=== PATIENT | female | born 1990 | race American Indian/Alaskan Native ===

== ENCOUNTER → 2020-05-25 09:31 | Outpatient (REF) | payer OTHER, SELFPAY | LOC: ANHLAB 09:31 | PROVIDERS: Visit Provider Nurse Practitioner | DX: D22.39 Melanocytic nevi of other parts of face (principal) | CPT/HCPCS: 88305 ==

== ENCOUNTER 2022-02-15 18:20 | Emergency (ER) | payer OTHER, SELFPAY ==
--- NOTE | ~2022-02-15 | XR_ITS ---
EXAMINATION: XR chest 2V Exam Date/Time: 02/15/2022 19:05 CDT HISTORY: LEFT SIDED CP X 4 DAYS HX ANXIETY Comparison: None available. RESULT: Lines, tubes, and devices: None. Lungs and pleura: Clear. Cardiomediastinal silhouette: Normal. Other: No acute osseous or upper abdominal finding. IMPRESSION: No acute cardiopulmonary process. Reviewed, dictated and finalized at location K.
[2022-02-15 18:22] VITALS: BP 135/70; PULSE 106; RESP 20; TEMP 37.1; O2SAT 99
--- NOTE | 2022-02-15 18:25 | ECG_ITS ---
Measurements Intervals [place] Rate: 101 P: 65 VT: 146 QRS: 19 QRSD: 78 T: -11 QT: 339 QTc: 441 Interpretive Statements SINUS TACHYCARDIA POSSIBLE LEFT ATRIAL ENLARGEMENT [-0.1mV P-WAVE IN V1/V2] POSSIBLE RIGHT VENTRICULAR CONDUCTION DELAY [RSR (QR) IN V1/V2] NONSPECIFIC T-WAVE ABNORMALITY ABNORMAL RHYTHM ECG NO PREVIOUS ECG AVAILABLE FOR COMPARISON Electronically Signed On 02-15-2022 20:04:06 CDT by Marissa Diaz M.D.
[2022-02-15 18:57] LABS: Basophils Percent Auto 0.3 % (0.2-1.2); Eosinophils Absolute Auto 0.1 K/mm3 (0-0.3); Eosinophils Percent Auto 1.3 % (0-4.4); Hematocrit 39.5 % (37.0-47.0); Hemoglobin 13.3 g/dL (12.0-15.0); Immature Granulocyte Absolute 0.01 K/mm3 (0.00-0.031); Immature Granulocyte Percent A 0.2 % (0-0.5); Lymphocytes Absolute Auto 1.69 K/mm3 (0.9-3.2); Lymphocytes Percent Auto 26.5 % (18.3-44.2); Mean Corpuscular HGB Conc 33.7 g/dl (32-36); Mean Corpuscular Hemoglobin 29.4 pg (26-34); Mean Corpuscular Volume 87.4 fl (80-100); Mean Platelet Volume 10.1 fl (7.4-10.4); Monocytes Absolute Auto 0.5 K/mm3 (0.1-0.6); Monocytes Percent Auto 7.1 % (2.6-8.5); Neutrophils Absolute Auto 4.1 K/mm3 (1.3-6.7); Neutrophils Percent Auto 64.6 % (45.5-73.1); Platelet Count Result 162 k/mm3 (150-375); Red Blood Count 4.52 M/mm3 (4.2-5.4); Red Cell Distribution Width 11.9 % (11.5-14.5); White Blood Count 6.4 K/mm3 (4.5-10.0)
[2022-02-15 19:07] LABS: Alanine Aminotransferase 14 U/L (6-35); Albumin Level 4.7 g/dL (3.5-5.1); Alkaline Phosphatase 52 U/L (38-126); Anion Gap 11 mmol/L (8-16); Aspartate Amino Transferase 25 U/L (14-36); Bilirubin,Total 0.6 mg/dL (0.2-1.3); Blood Urea Nitrogen 11 mg/dL (7-17); Calcium 9.3 mg/dL (8.4-10.2); Carbon Dioxide 27 mmol/L (22-30); Chloride 101 mmol/L (98-107); Estimated CRCL calculation 80 ml/min; Estimated Glomerular Filt Rate > 60; Glucose 101 mg/dL (65-110); Lipase 120 U/L (23-300); Potassium 3.4 mmol/L (3.4-5.0); Sodium 139 mmol/L (137-145)
--- NOTE | 2022-02-15 19:16 | ED.CHESTPAIN ---
HPI - Chest Pain General Chief Complaint: Chest Pain Stated Complaint: chest pain, anxiety Time Seen by Provider: 02/15/22 19:02 Source: patient Mode of arrival: ambulatory Limitations: no limitations History of Present Illness HPI narrative: Patient is a 31 y/o female who presents to the ED with c/o left-sided chest wall pain/shoulder pain and anxiety. Patient reports she fell 2 weeks ago and landed with her left arm outstretched awkwardly. She has had pain intermittently in her left shoulder/left axillary region/left anterior lateral chest wall since then. Pain has increased over the past 4 days. No new injury. She has not tried anything for the pain. No difficulty breathing, no pain with exertion or taking deep breath. No recent cough or cold symptoms. No risk factors for CAD. Patient also reports having severe anxiety over the last 4 days. She had similar anxiety in May after her became very ill with COVID and she was placed on Lexapro at that time. She stopped taking this when she began to feel better, but began taking this again 4 days ago. She denies any recent triggers to cause her anxiety to worsen. Denies any SI, HI, AVH. Related Data Home Medications Medication Instructions Recorded Confirmed alprazolam 0.25 mg tablet mg 02/15/22 Allergies Allergy/AdvReac Type Severity Reaction Status Date / Time No Known Allergies Allergy Unknown Verified 02/15/22 18:48 Review of Systems Review of Systems: CONSTITUTIONAL: Denies fever, chills, or sweats. ENT: Denies rhinorrhea, congestion, sore throat, or otalgia. CARDIOVASCULAR: Reports left lateral chest wall pain. RESPIRATORY: Denies cough or dyspnea. GASTROINTESTINAL: Denies abdominal pain, nausea, vomiting. MUSCULOSKELETAL: Reports left shoulder pain. PSYCHIATRIC: Reports anxiety. Denies SI, HI, AVH. All systems reviewed & are unremarkable except as noted in HPI and below PMFSH Past Medical History Medical History History of sprain of arm broken arm 1999 Surgical History Surgical History H/O dilation and curettage 2016 Social History Social History Smoking status: Never smoker Alcohol intake: never Substance use: never Substance use type: does not use Exam Narrative: GENERAL: Well appearing, well-nourished, non-toxic, in no acute distress. HEAD: Normocephalic, atraumatic. NECK: Supple. No adenopathy, no masses. RESPIRATORY: Airway patent, respirations nonlabored. Clear to auscultation bilaterally, no rales, rhonchi, wheezing. CARDIOVASCULAR: Regular rate and rhythm without murmurs, rubs, or gallops. Peripheral pulses 2+ and equal bilaterally. ABDOMINAL: Soft, nontender, nondistended, no hepatosplenomegaly. Normoactive BS. MUSCULOSKELETAL: Moves all extremities. Strength/ROM intact without gross deformities. Tenderness to L lateral anterior chest wall, near her axillary region, over lateral pectoralis major muscle where it extends into axillary region. SKIN: Warm, dry, normal color. No rashes. NEURO: A&O X3. Speech clear. Cranial nerves II-XII grossly intact. Steady gait. No ataxic movements. PSYCHIATRIC: Very anxious. Twiddling thumbs, talking fast. Normal interaction. Course Vital Signs Vital signs: Vital Signs Temperature 98.7 F 02/15/22 18:22 Pulse Rate 106 H 02/15/22 18:22 Respiratory Rate 20 02/15/22 18:22 Blood Pressure 135/70 02/15/22 18:22 Pulse Oximetry 99 02/15/22 18:22 Oxygen Delivery Room Air 02/15/22 18:22 Temperature 98.7 F 02/15/22 18:22 Pulse Rate 106 H 02/15/22 18:22 Respiratory Rate 20 02/15/22 18:22 Blood Pressure 135/70 02/15/22 18:22 Pulse Oximetry 99 02/15/22 18:22 Oxygen Delivery Room Air 02/15/22 18:22 MDM - Chest Pain MDM Narrative Medical decision making na
[2022-02-15 19:18] LABS: Troponin I < 0.012 ng/mL (0.000-0.034)
[2022-02-15 19:37] LABS: Prothrombin Time 13.1 Seconds (11.1-14.7)
[2022-02-15 19:38] LABS: Partial Thromboplastin Time 27.5 SECONDS (22.3-36.8)
[2022-02-15 20:04] LABS: Acetaminophen < 10 ug/mL (10-30); Ethanol < 10 mg/dL (<10); Salicylate < 1.0 mg/dL (2-20)
[2022-02-15 20:14] LABS: D Dimer < 0.27 ug/mL (<0.48)
[2022-02-15 20:33] LABS: Appearance Urine Clear (Clear); Bilirubin Urine Negative (Negative); Blood Urine Negative (Negative); Color Urine Yellow (Yellow); Glucose Urine UA Negative (Negative); Ketones Urine 2+ mg/dL (Negative); Leukocyte Esterase Ur Trace LEU/UL (Negative); Nitrate Urine Negative (Negative); Protein Urine Negative (Negative); Urobilinogen Urine 0.2 mg/dL (<2.0)
[2022-02-15 20:42] LABS: Mucus Urine Few /lpf; Squamous Epithelial Cell Urine Many /hpf (Few); WBC Urine 0-3 /hpf
[2022-02-15 20:48] LABS: Add Urine Microscopic? YES
[2022-02-15 20:56] LABS: Amphetamine Screen Urine Negative (Negative); Barbiturate Screen Urine Negative (Negative); Benzodiazepines Screen Urine Negative (Negative); Cannabinoid Screen Urine Negative (Negative); Cocaine Screen Urine Negative (Negative); Methadone Screen Urine Negative (Negative); Opiate Screen Urine Negative (Negative); Phencyclidine Screen Urine Negative (Negative)
== END 2022-02-15 21:35 | disposition home or self-care (01) ==
PROVIDERS: Emergency Medicine; Physician Assistant; Emergency Provider Emergency Medicine
DX: R07.89 Other chest pain (principal); F41.9 Anxiety disorder, unspecified; M25.512 Pain in left shoulder; R00.0 Tachycardia, unspecified; R94.31 Abnormal electrocardiogram [ECG] [EKG]
CPT/HCPCS: 36415; 71046; 80053; 80307; 81001; 83690; 84443; 84484; 85025; 85380; 85610; 85730; 93005; 99284

== ENCOUNTER 2022-05-09 12:35 | Emergency (ER) | payer OTHER, SELFPAY ==
--- NOTE | 2022-05-09 12:38 | ED.URI ---
HPI - URI/Sore Throat General Chief Complaint: Upper Respiratory Infection Stated Complaint: SORE THROAT/FEVER/VOMITING Time Seen by Provider: 05/09/22 12:53 Source: patient, RN notes reviewed and old records reviewed Mode of arrival: ambulatory Limitations: no limitations History of Present Illness HPI Narrative: 32-year-old female presents to the [facility] with complaints of sore throat, vomiting for 2 days, burning with urination. Denies any abdominal pain. Denies any chance of STD or . No treatment prior to arrival Related Data Home Medications Medication Instructions Recorded Confirmed escitalopram oxalate 10 mg tablet 10 mg PO DAILY 03/03/22 05/09/22 (Lexapro) Allergies Allergy/AdvReac Type Severity Reaction Status Date / Time No Known Allergies Allergy Unknown Verified 04/10/22 13:13 Review of Systems Review of Systems: All systems reviewed & are unremarkable except as noted in HPI and below Constitutional: Constitutional: Reports no additional constitutional complaints, Denies chills and Denies fever(s) Eyes: Eyes: Reports no additional eye complaints ENT: Reports as per HPI and Reports sore throat Cardiovascular: Cardiovascular: Reports no additional cardiovascular complaints Respiratory: Respiratory: Reports no additional respiratory complaints Gastrointestinal: Gastrointestinal: Reports as per HPI, Denies abdominal pain and Reports vomiting Genitourinary: Genitourinary: Reports as per HPI and Reports dysuria Musculoskeletal: Musculoskeletal: Reports no additional musculoskeletal complaints Integumentary/Breasts: Skin/Breast: Reports system reviewed and no additional complaints, except as docu Neurologic: Reports system reviewed and no additional complaints, except as documented Psychiatric: Psychiatric: Reports no additional psychiatric complaints Allergic/Immunologic: Allergic/Immunologic: Reports no additional allergic/immunologic complaints [facility] Past Medical History Medical History History of sprain of arm broken arm 1999 Surgical History Surgical History H/O dilation and curettage 2016 Social History Social History Smoking status: Never smoker Alcohol intake: never Substance use: never Substance use type: does not use Comments At the time of my signature, I reviewed and agree with the nursing past medical, surgical, social, and family history. There is no relevant family history pertinent to the patient complaint. Exam Const: General: healthy appearing, comfortable, no acute distress, well developed, alert and well nourished Nutritional Appearance: well nourished Orientation/consciousness: patient oriented x3 Limitations: no limitations HENMT: Head: normal to inspection Ears: external ears normal, TM's normal bilaterally and EAC's normal Face/Nose/Sinus: Normal external nose present and Normal nares present Face and sinus: normal facial exam Mouth: Yes Normal oral and palatal mucosa present, Yes lip normal and Yes moist mucous membranes Throat: posterior oropharynx normal and uvula midline Eyes: General: appearance normal, both eyes and all related structures Pupils: Equal, round and reactive pupils present Neck: Neck: normal visual inspection, full ROM, no lymphadenopathy and no meningeal signs Chest: Chest palpation & inspection: normal inspection of the chest Resp: Effort & Inspection: normal respiratory effort and no use of accessory muscles Auscultation: clear to auscultation bilaterally, no crackles, no rales, no rhonchi and no wheezes Cardio: Rate: regular rate Rhythm: regular rhythm GI: GI Palp: Yes Soft to palpation and No Tenderness to palpation present (GI) Auscultation: normal bowel sounds Back/Spine/Pelvis: Back: no CVA tenderness Cervical Spine: cervical ROM no
[2022-05-09 12:53] VITALS: BP 107/78; PULSE 86; RESP 16; TEMP 37.2; O2SAT 98
== END 2022-05-09 13:57 | disposition home or self-care (01) ==
PROVIDERS: Emergency Provider Nurse Practitioner; PCP Internal Medicine
DX: N30.01 Acute cystitis with hematuria (principal); J02.9 Acute pharyngitis, unspecified
CPT/HCPCS: 81003; 87081; 87086; 87088; 87880; 99213; G0463

== ENCOUNTER 2022-08-18 13:42 | Outpatient (CLI) | payer OTHER, SELFPAY ==
--- NOTE | ~2022-08-18 | US_ITS ---
US thyroid INDICATION: Euthyroid. The thyroid antibodies. TECHNIQUE: Real-time sonographic images of the thyroid gland were obtained. COMPARISON: No prior studies for comparison. FINDINGS: The right thyroid lobe measures 4.6 x 1.2 x 1.3 cm. The left thyroid lobe measures 3.9 x 1 x 1.7 cm. There is normal echotexture and echogenicity throughout the thyroid gland. No discrete nod ules identified. Normal vascular flow is present. IMPRESSION: 1. Normal thyroid without discrete nodule or abnormal vascularity. Reviewed, dictated and finalized at location B. BUILDER
== END 2022-08-18 13:43 | disposition home or self-care (01) ==
LOC: ANHIMG 13:45
PROVIDERS: PCP Physician Assistant; Visit Provider Physician Assistant
DX: E07.81 Sick-euthyroid syndrome (principal)
CPT/HCPCS: 76536

== ENCOUNTER 2023-12-17 13:18 | Outpatient (CLI) | payer OTHER, SELFPAY ==
--- NOTE | ~2023-12-17 | US_ITS ---
EXAMINATION: US thyroid DATE: 12/17/2023 13:32 INDICATION: Euthyroid Sick Syndrome. TECHNIQUE: Multiple ultrasound images of the thyroid were obtained. COMPARISON: Ultrasound 08/18/2022 FINDINGS: The right thyroid lobe measures 3.9 x 1.5 x 0.9 cm. The left thyroid lobe measures 3.6 x 0.9 x 1.3 c m. There is normal echotexture and echogenicity throughout the thyroid gland. No discrete nodules id entified. Normal vascular flow is present. IMPRESSION: 1. Normal thyroid. Reviewed, dictated and finalized at location A. IMPRESSION: 1. Normal thyroid.
== END 2023-12-17 13:19 ==
PROVIDERS: PCP Physician Assistant; Visit Provider Physician Assistant
DX: E07.81 Sick-euthyroid syndrome (principal)
CPT/HCPCS: 76536

== ENCOUNTER 2024-08-18 16:50 | Emergency (ER) | payer OTHER, SELFPAY ==
--- NOTE | 2024-08-18 16:52 | ED.EAR ---
HPI - Ear Problem General Chief complaint: Ear Stated complaint: Ear Pain Time Seen by Provider: 08/18/24 17:05 Source: patient Mode of arrival: ambulatory Limitations: no limitations History of Present Illness HPI Narrative: Kassy is a 34-year-old female patient presenting to the clinic today with complaints of left ear pain, wound to the left buttocks, and a pimple to her face. Her some significant other was seen earlier today and thought that he may have a strep or a staph infection. She is concerned that she may have a staph infection on her left glute after having a mole removed the area is scabbed but is red and tender to palpation. Denies any fever or chills. States she never gets pimples and has a new pimple on her face. Also states that she was cleaning out her ear with a Q-tip and her daughter jammed the Q-tip in her ear and she is having pain from that. Did notice some blood initially with injury. Denies any hearing loss. Thinks that she may have a cut inside her left ear canal Related Data Home Medications ?Medication ?Instructions ?Recorded ?Confirmed ?Last Taken ?Type buspirone 5 mg tablet 5 mg PO TID 11/15/22 01/23/24 Unknown History Allergies Allergy/AdvReac Type Severity Reaction Status Date / Time No Known Allergies Allergy Unknown Verified 01/23/24 09:40 Review of Systems Review of Systems: Pertinent positives per HPI. Patient denies any fever, chills, rash, headache, visual changes, dizziness, cough, shortness of breath, chest pain, palpitations, nausea, vomiting, diarrhea, constipation, abdominal pain, or any urinary issues. [facility] Past Medical History Medical History History of sprain of arm broken arm 1999 Surgical History Surgical History H/O dilation and curettage 2016 Social History Social History Smoking status: Never smoker Alcohol intake: never Substance use: never Substance use type: does not use Lack of Transportation: No Lack of Food: Never True Current Housing: I Have Housing Concerned About Future Housing: No Difficulty Paying Gas/Electric Bills: No Difficulty Paying for Meds: No Currently Unemployed: No Education: High School Diploma/GED Difficulty w/ Childcare or Family Care: No Comments At the time of my signature, I reviewed and agree with the nursing past medical, surgical, social, and family history. There is no relevant family history pertinent to the patient complaint. Exam Narrative: General: Well-developed, well nourished, in no apparent distress Head: Normocephalic, atraumatic, Eyes: Pupils equally round and reactive to light bilaterally, EOM intact, sclera and conjunctive clear, no discharge, lids normal Ears: TMs intact and clear, right ear canal clear, left ear canal red and swollen with some blood noted at 12:00 of the ear canal, no drainage, grossly hearing normal. Nose: Nares patent, no discharge, no inflammation, no sinus tenderness. Mouth: Oral pharynx without lesions or masses, good dentition, MMM. Neck: Supple, trachea midline, no enlargement of anterior or posterior cervical nodes, no thyroid masses or goiter palpable. Cardio: Regular rate and rhythm, s1 and s2 normal, no murmur appreciated. Resp: Clear to auscultation bilaterally, no rhonchi, rales, wheezing or rubs Integumentary: [place], warm, and dry, scabbed wound to the left glut with mild redness and induration surrounding the wound, no drainage, mildly tender to palpation, small pustular lesion to the right cheek. Course Course Emergency Course: Portions of this record may have been created with voice recognition software. Level of Care: Express Care Visit Vital Signs Vital signs: Vital Signs Temperature 36.9 C 08/18/24 17:01 Pulse Rate 88 08/18/24 17:01 Respiratory Rate 18 08/18/24 17:01 Blood Pressure 123/79 08/18/24 17:01 Pulse Oximetry 99 08/18/24 17:01 Oxygen Delivery Room Air 08/18/24 17:01 Temperature 36.9 C 08/18/24 17:01 Pulse Rate 88 08/18/24 17:01 Respiratory Rate 18 08/18/24 17:01 Blood Pressure 123/79 08/18/24 17:01 Pulse Oximetry 99 08/18/24 17:01 Oxygen Delivery Room Air 08/18/24 17:01 Vital signs reviewed Medical Decision Making MDM Narrative Medical decision making narrative: At the time of visit patient is resting comfortably on the exam table. Patient appears to be nontoxic. Plan: Patient is concerned about staph/strep infection. She has a scabbed over wound to the left glute with mild induration and redness. Will prescribe mupirocin cream for this. Also has ear canal swelling with some dried blood at 12:00 p.m.. Will prescribe Cortisporin prescription. Supportive measures were discussed with the patient and they voiced understanding discharge instructions and agrees to treatment plan. Return precautions reviewed Differential Diagnosis Differential Diagnosis: Otitis media, otitis externa, eustachian tube dysfunction, cerumen impaction, upper respiratory infection, serous otitis, wound infection, acne Vital Signs Vital Signs: Vital Signs Temperature 36.9 C 08/18/24 17:01 Pulse Rate 88 08/18/24 17:01 Respiratory Rate 18 08/18/24 17:01 Blood Pressure 123/79 08/18/24 17:01 Pulse Oximetry 99 08/18/24 17:01 Oxygen Delivery Room Air 08/18/24 17:01 Temperature 36.9 C 08/18/24 17:01 Pulse Rate 88 08/18/24 17:01 Respiratory Rate 18 08/18/24 17:01 Blood Pressure 123/79 08/18/24 17:01 Pulse Oximetry 99 08/18/24 17:01 Oxygen Delivery Room Air 08/18/24 17:01 Discharge Plan Discharge Clinical Impression: Wound infection External otitis of left ear Qualifiers: Otitis externa type: other infective Chronicity: acute Qualified Code(s): H60.392 - Other infective otitis externa, left ear Patient Disposition: Home, Self-Care Condition: Stable Instructions: Antibiotic Form, Wound Infection (ED), Earache (ED) Additional Instructions: Apply mupirocin cream to the wound as directed Apply polymyxin ear drops as prescribed Tylenol/motrin as needed for pain May use heating pad to alleviate pain Avoid bottle propping if ear infection in . If you get recurrent ear infections it may be warranted to follow up with ENT. Follow up with your PCP in 3-5 days if symptoms persist. Patient Language: [place] Citizen Prescriptions: New [id number] 3.5-10,000-1 mg/mL-unit/mL-% drops,suspension 4 drp LEFT EAR Q8H 7 Days Qty: 10 0RF mupirocin [Centany] 2 % ointment 1 applic topical BID 7 Days Qty: 22 0RF No Action buspirone 5 mg tablet 5 mg PO TID Follow-up/Referrals: PHYSICIAN,SOAKING ROOM OPERATOR [Primary Care Provider] - Time of Disposition: 17:15 Quality NIHSS Nursing Documentation ED NIHSS nursing documentation: reviewed/agree
[2024-08-18 17:01] VITALS: BP 123/79; PULSE 88; RESP 18; TEMP 36.9; O2SAT 99
== END 2024-08-18 17:16 | disposition home or self-care (01) ==
PROVIDERS: Emergency Provider Nurse Practitioner Family
DX: T81.40XA Infection following a procedure, unspecified, initial encounter (principal); H60.392 Other infective otitis externa, left ear
CPT/HCPCS: 99213; G0463